=== PATIENT | female | born 1985 | race Caucasian/White ===

== ENCOUNTER 2023-11-17 19:57 | Outpatient (CLI) | payer MEDICAID, SELFPAY ==
[2023-11-17 20:21] VITALS: BP 132/84; PULSE 88; PULSE 91; RESP 18; TEMP 37.2; O2SAT 97
[2023-11-17 20:28] VITALS: PULSE 87; O2SAT 96
[2023-11-17 21:00] VITALS: BP 136/84; PULSE 87
[2023-11-17 21:23] LABS: Hematocrit 36.4 % (33.0-51.0); Mean Corpuscular HGB Conc 33 gm/dL (32-36); Mean Corpuscular Hemoglobin 31 pg (26-34); Mean Corpuscular Volume 93 fL (80-100); Platelet Count* 272 K/uL (140-440); Red Blood Count 3.91 m/uL (4.00-5.20); White Blood Count* 9.97 K/uL (4.50-11.00)
[2023-11-17 21:28] LABS: Slide Review Reflex No
[2023-11-17 21:30] VITALS: BP 129/84; RESP 18
[2023-11-17 21:31] VITALS: BP 129/84; PULSE 88
[2023-11-17 21:31] LABS: Creatinine* 0.5 mg/dL (0.5-1.5); Est. Creatinine Clearance* 118.29; Estimated Glomerular Filt Rate 122 ml/min
[2023-11-17 21:32] LABS: Alanine Aminotransferase* 11 U/L (4-35); Aspartate Amino Transferase* 21 U/L (12-35); Blood Urea Nitrogen* 10 mg/dL (5-24)
[2023-11-17 21:32] LABS: Total Protein Urine 10 mg/dL
[2023-11-17 21:33] LABS: Creatinine Urine 47.8 mg/dL; Protein Creatinine Ratio Urine 0.21 (0-0.19)
--- NOTE | 2023-11-17 21:40 | PC.OBNST ---
NST Note NST Note Start: 11/17/23 20:35 Freq: ONCE Status: Active Protocol: Document 11/17/23 20:35 [email or web address] (Rec: 11/17/23 21:40 DEIDRE [id number]) NST Note 3 Para (# of births) 1 EDC [birth year] Gestational Age In Weeks & Days 37 Weeks & 3 Days High Risk Factors High Blood Pressure - Gestational Patient Presented with Complaint(s) of Other Other Complaints In for bp monitoring Reactive Yes Appropriate for Gestational Age Yes RN Triston RN Date 11/17/23 Reactive Yes Appropriate for Gestational Age Yes RN Darian RN Date 11/17/23 OB NST charge Yes Complete NST Note via Write Note Yes The provider's electronic signature indicates the NST is reactive/appropriate for gestational age. *Note to provider: If an addendum is required, open the patient's chart and click on the note under the Nurse/Allied Health tab.
== END 2023-11-17 21:57 | disposition home or self-care (01) ==
LOC: OB OUT 19:58 → OB 19:58
PROVIDERS: PCP Family Medicine; Visit Provider Family Medicine
DX: O13.3 Gestational [pregnancy-induced] hypertension without significant proteinuria, third trimester (principal); Z3A.37 37 weeks gestation of pregnancy
CPT/HCPCS: 36415; 59025; 82565; 82570; 84156; 84450; 84460; 84520; 85027; G0463